=== PATIENT | female | born 1990 | race Hispanic/Latino ===

== ENCOUNTER 2017-04-06 23:15 | Emergency (ER) | payer OTHER ==
[2017-04-06 23:16] VITALS: BMI 23.9
[2017-04-06 23:29] VITALS: BP 136/88; PULSE 72; RESP 18; TEMP 98.3; O2SAT 100
[2017-04-06] MEDS ORDERED: Sodium Chloride 0.9% 1,000 ML IV STA (23:49)
[2017-04-07] MEDS ORDERED: cefTRIAXone 2 GM in Sodium Chloride 0.9% 100 ML IVPB STA (00:02)
--- NOTE | 2017-04-07 00:06 | ED PDOC ---
HPI: Abdomen Time Seen by Provider: 04/06/17 23:22 Chief Complaint (Nursing): Abdominal Pain History Per: Patient History/Exam Limitations: no limitations Onset/Duration Of Symptoms: Hrs Current Symptoms Are (Timing): Still Present Pain Scale Rating Of: 9 Location Of Pain/Discomfort: Other Quality Of Discomfort: Sharp Associated Symptoms: Chills, Nausea, Vomiting (3x episodes). denies: Fever Exacerbating Factors: Movement Alleviating Factors: None Last Bowel Movement: Today Additional Complaint(s): CC: R flank pain, back and abdominal pain HPI: 26 YO Female with PMH of renal stones presents to [facility] ED for R flank pain. Pt states that her pain started this AM, sudden onset, episodic sharp pain in her R flank, and LLQ pain. Pain is rated as a 9/10, with radiation to her groin. Pain is worse with movement, took Percocet this AM and this afternoon without any relief. Pt states that she has had a hard time urinating today, she feels sharp pain with urination and noticed that her urine has been dark and last time she urinated it was pink. Pt states that this feels like her "stone episode" in the past. Endorses chills, nausea and 3x episodes of vomiting (food, no blood). Denies chest pain, dyspnea, palpitations, d/c, fevers. PMH: renal stones SurgHx: skin graft, appendectomy and cholecystectomy SH: denies Smoking, illicit drug use, occasional alcohol FH: denies Allergies: vancomycin hives, rash Meds: Percocet Abnormal Vaginal Bleeding: No Past Medical History Vital Signs: Last Vital Signs Temp 98.3 F 04/06/17 23:26 Pulse 72 04/06/17 23:26 Resp 18 04/06/17 23:26 BP 136/88 04/06/17 23:26 Pulse Ox 100 04/07/17 01:42 - Medical History PMH: Denies: Chronic Kidney Disease - Surgical History Surgical History: Appendectomy, Cholecystectomy - Family History Family History: States: No Known Family Hx - Social History Current smoker - smoking cessation education provided: No Alcohol: Social Drugs: Denies - Home Medications Home Medications: Ambulatory Orders Medication Instructions Recorded Cephalexin [cephalexin] 500 mg PO BID #10 cap 11/21/16 Ondansetron ODT [Zofran ODT] 4 mg PO Q4H PRN #15 odt 11/21/16 traMADol [Ultram] 50 mg PO TID PRN #10 tab 11/21/16 levoFLOXacin [Levaquin] 750 mg PO DAILY #9 tab 04/07/17 traMADol [Ultram] 50 mg PO Q6 PRN #12 tab 04/07/17 - Allergies Allergies/Adverse Reactions: Allergies Allergy/AdvReac Type Severity Reaction Status Date / Time vancomycin Allergy ANAPHYLAXIS Verified 11/21/16 18:20 Review of Systems Constitutional: Positive for: Chills. Negative for: Fever, Sweats Cardiovascular: Negative for: Chest Pain, Palpitations Respiratory: Negative for: Cough, Shortness of Breath Gastrointestinal: Positive for: Nausea, Vomiting, Abdominal Pain (R flank and LLQ pain ). Negative for: Diarrhea, Constipation Genitourinary Female: Positive for: Dysuria, Incontinence, Hematuria. Negative for: Frequency Musculoskeletal: Positive for: Back Pain (b/l back pain and R flank pain) Skin: Negative for: Rash Neurological: Negative for: Weakness, Numbness Physical Exam - Physical Exam Appears: Positive for: In Acute Distress Head Exam: Positive for: ATRAUMATIC, NORMAL INSPECTION Skin: Positive for: Warm, Dry Eye Exam: Positive for: Normal appearance Cardiovascular/Chest: Positive for: Regular Rate, Rhythm. Negative for: Murmur Respiratory: Positive for: Normal Breath Sounds. Negative for: Crackles, Wheezing Gastrointestinal/Abdominal: Positive for: Bowel Sounds, Soft, Tenderness ( diffuse tenderness to palpation of RUQ, R flank, suprapubic tenderness) Back: Positive for: L CVA Tenderness. Negative for: Vertebral Tenderness Extremity: Positive for: Normal ROM. Negative for: Tenderness, Pedal Edema Neurologic/Psych: Positive for: Alert, Oriented - Laboratory Results Result Diagrams: 04/07/17 00:25 04/07/17 00:25 - ECG O2 Sat by Pulse Oximetry: 100 - Progress ED Course And Treament: 26 YO female with PMH of renal stones presents to [facility] ED for R flank and abdominal. --cbc --cmp --CT abdomen --lipase --Urine dip --UA --Urine preg --blood culture --urine culture --IV fluids --toradol IV --Zofran IV --Rocephin IVPB Urine dip sig for large blood, nitrates pos and trace leukes cbc, cmp, lipase wnl Urine preg neg Will start IV Rocephin. UA is sig for Nitrate High, moderate leukes, RBC 1172 H, WBC 254 H, and moderate H bacteria. EXAM: CT Abdomen and Pelvis Without Intravenous Contrast ABDOMEN: Liver: Unremarkable. Gallbladder and bile ducts: Cholecystectomy. Pancreas: Unremarkable. No ductal dilation. Spleen: Unremarkable. No splenomegaly. Adrenals: Unremarkable. No mass. Kidneys and ureters: Nonobstructive tiny right renal stones. Faint densities in the medullary regions of both kidneys are somewhat nonspecific, perhaps reflecting dense solute, Sukumar's plaque, tiny calcifications, or other debris. Stomach and bowel: Large amount of stool in the colon. Nonspecific colonic wall thickening. Correlation with patient's clinical history of constipation versus stool related colitis is recommended. There is stool like appearance to the distal small bowel. This may represent slow transit. Appendix: Appendectomy. PELVIS: Bladder: There is nonspecific bladder wall thickening. This may be related to incomplete distention. Reproductive: Anteriorly displaced uterus. High riding ovaries. ABDOMEN and PELVIS: Intraperitoneal space: Unremarkable. No free air. No significant fluid collection. Bones/joints: No acute fracture. No dislocation. Soft tissues: Bilateral nipple body and labial piercing ring. Vasculature: Pelvic phleboliths. No abdominal aortic aneurysm. Lymph nodes: Unremarkable. No enlarged lymph nodes. IMPRESSION: No acute abnormality on this noncontrast CT examination of the abdomen and pelvis Pain and tenderness is likely 2/2 to pyelonephritis Pt is seen and revaluated Feels better, after pain meds, IV fluids, abx Will d.c home with levaquin and ultram Follow up with PMD Disposition - Clinical Impression Clinical Impression: Pyelonephritis - Patient ED Disposition Is Patient to be Admitted: No - Disposition Disposition Time: 01:40 Condition: STABLE Additional Instructions: Please come back to ED if pain persists With persistent fever over 100.4 with Tylenol Prescriptions: levoFLOXacin [Levaquin] 750 mg PO DAILY #9 tab traMADol [Ultram] 50 mg PO Q6 PRN #12 tab PRN Reason: flank pain Instructions: Acute Pyelonephritis (ED) Forms: [employer] ([place] Islander)
[2017-04-07] MEDS ORDERED: cefTRIAXone (Rocephin) 1 gm Inj ONE (00:26)
[2017-04-07 00:28] LABS: BASO % 0.4 % (0.0-2.0); EOS # 0.1 K/uL (0.0-0.7); EOS % 1.1 % (0.0-4.0); HEMOGLOBIN 13.1 g/dL (12.0-16.0); LYMPH # 3.1 K/uL (1.0-4.3); LYMPH % 36.5 % (20.0-40.0); MEAN CELL VOLUME 87.2 fl (81.0-99.0); MEAN CORPUSCULAR HEMOGLOBIN 29.3 pg (27.0-31.0); MEAN CORPUSCULAR HGB CONC 33.6 g/dL (33.0-37.0); MEAN PLATELET VOLUME 8.3 fl (7.2-11.7); MONO # 0.6 K/uL (0.0-0.8); MONO % 7.3 % (0.0-10.0); NEUT # 4.6 K/uL (1.8-7.0); NEUT % 54.7 % (50.0-75.0); NRBC % 0.1 % (0.0-0.0); RBC 4.47 Mil/uL (3.80-5.20); RED CELL DISTRIBUTION WIDTH 12.6 % (11.5-14.5); WHITE BLOOD COUNT 8.4 K/uL (4.8-10.8)
[2017-04-07 00:43] LABS: ALB/GLOB RATIO 1.3 (1.0-2.1); ALBUMIN 4.1 g/dL (3.5-5.0); ALT/SGPT 22 U/L (9-52); AST/SGOT 29 U/L (14-36); BLOOD UREA NITROGEN 16 mg/dl (7-17); CALCIUM 9.1 mg/dL (8.4-10.2); GFR AFRICAN-AMERICAN > 60; GFR NON-AFRICAN AMERICAN > 60; LIPASE 49 U/L (23-300)
[2017-04-07 00:54] LABS: SQUAMOUS EPITHIAL 1 /hpf (0-5); URINE BACTERIA MOD (<OCC); URINE BILIRUBIN NEGATIVE (NEGATIVE); URINE BLOOD LARGE (NEGATIVE); URINE CLARITY CLOUDY (Clear); URINE COLOR YELLOW (YELLOW); URINE GLUCOSE (UA) NEG (Normal); URINE LEUKOCYTE ESTERASE MOD Leu/uL (Negative); URINE NITRATE POSITIVE (NEGATIVE); URINE PROTEIN 30 mg/dL (NEGATIVE); URINE UROBILINOGEN 0.2-1.0 mg/dL (0.2-1.0)
--- NOTE | 2017-04-07 01:17 | CT ---
EXAM: CT Abdomen and Pelvis Without Intravenous Contrast CLINICAL HISTORY: 26 years old, female; Pain; Abdominal pain; Flank; Right; Prior surgery; Surgery date: 6+ months; Surgery type: Appendectomy. Gall bladder; Additional info: Renal colic TECHNIQUE: Axial computed tomography images of the abdomen and pelvis without intravenous contrast. All CT scans at this facility use one or more dose reduction techniques, viz.: automated exposure control; ma/kV adjustment per patient size (including targeted exams where dose is matched to indication; i.e. head); or iterative reconstruction technique. 571 images are submitted.Limitations: Absence of IV contrast decreases sensitivity for detecting solid organ and vascular abnormality and injury. Coronal and sagittal reformatted images were created and reviewed. COMPARISON: No relevant prior studies available. FINDINGS: Lower thorax: No acute findings. ABDOMEN: Liver: Unremarkable. Gallbladder and bile ducts: Cholecystectomy. Pancreas: Unremarkable. No ductal dilation. Spleen: Unremarkable. No splenomegaly. Adrenals: Unremarkable. No mass. Kidneys and ureters: Nonobstructive tiny right renal stones. Faint densities in the medullary regions of both kidneys are somewhat nonspecific, perhaps reflecting dense solute, Sukumar's plaque, tiny calcifications, or other debris. Stomach and bowel: Large amount of stool in the colon. Nonspecific colonic wall thickening. Correlation with patient's clinical history of constipation versus stool related colitis is recommended. There is stool like appearance to the distal small bowel. This may represent slow transit. Appendix: Appendectomy. PELVIS: Bladder: There is nonspecific bladder wall thickening. This may be related to incomplete distention. Reproductive: Anteriorly displaced uterus. High riding ovaries. ABDOMEN and PELVIS: Intraperitoneal space: Unremarkable. No free air. No significant fluid collection. Bones/joints: No acute fracture. No dislocation. Soft tissues: Bilateral nipple body and labial piercing ring. Vasculature: Pelvic phleboliths. No abdominal aortic aneurysm. Lymph nodes: Unremarkable. No enlarged lymph nodes. IMPRESSION: No acute abnormality on this noncontrast CT examination of the abdomen and pelvis .
== END 2017-04-07 01:55 | disposition home or self-care (01) ==
LOC: H.ER 23:15
DX: N12 Tubulo-interstitial nephritis, not specified as acute or chronic (principal); Z87.442 Personal history of urinary calculi; Z90.49 Acquired absence of other specified parts of digestive tract
CPT/HCPCS: 74176; 80053; 81003; 81025; 83690; 85025; 87040; 87086; 87181; 96361; 96365; 96375; 99282; J0696; J1170; J1885; J2405; J7040

== ENCOUNTER 2017-05-25 12:20 | Emergency (ER) | payer OTHER ==
[2017-05-25 12:21] VITALS: BMI 23.9
[2017-05-25 12:36] VITALS: TEMP 98.5; O2SAT 99
[2017-05-25] MEDS ORDERED: Sodium Chloride 0.9% 1,000 ML IV SCH (14:00)
[2017-05-25 14:09] LABS: SQUAMOUS EPITHIAL 1 /hpf (0-5); URINE BACTERIA RARE (<OCC); URINE BILIRUBIN NEGATIVE (NEGATIVE); URINE BLOOD LARGE (NEGATIVE); URINE CLARITY CLOUDY (Clear); URINE COLOR YELLOW (YELLOW); URINE GLUCOSE (UA) NEG (Normal); URINE LEUKOCYTE ESTERASE LARGE Leu/uL (Negative); URINE PROTEIN 30 mg/dL (NEGATIVE); URINE UROBILINOGEN 0.2-1.0 mg/dL (0.2-1.0)
[2017-05-25 14:32] LABS: BASO % 0.3 % (0.0-2.0); EOS # 0.1 K/uL (0.0-0.7); HEMOGLOBIN 13.3 g/dL (12.0-16.0); LYMPH # 2.1 K/uL (1.0-4.3); LYMPH % 28.6 % (20.0-40.0); MEAN CELL VOLUME 87.8 fl (81.0-99.0); MEAN CORPUSCULAR HGB CONC 34.2 g/dL (33.0-37.0); MEAN PLATELET VOLUME 8.4 fl (7.2-11.7); MONO # 0.5 K/uL (0.0-0.8); MONO % 6.9 % (0.0-10.0); NEUT # 4.6 K/uL (1.8-7.0); NEUT % 63.2 % (50.0-75.0); NRBC % 0.1 % (0.0-0.0); RBC 4.42 Mil/uL (3.80-5.20); RED CELL DISTRIBUTION WIDTH 12.9 % (11.5-14.5); WHITE BLOOD COUNT 7.4 K/uL (4.8-10.8)
[2017-05-25 14:36] LABS: ALB/GLOB RATIO 1.4 (1.0-2.1); ALBUMIN 4.2 g/dL (3.5-5.0); ALT/SGPT 30 U/L (9-52); AST/SGOT 25 U/L (14-36); BLOOD UREA NITROGEN 12 mg/dl (7-17); CALCIUM 9.1 mg/dL (8.4-10.2); GFR AFRICAN-AMERICAN > 60; GFR NON-AFRICAN AMERICAN > 60; LIPASE 53 U/L (23-300)
--- NOTE | 2017-05-25 14:38 | ED PDOC ---
HPI: Abdomen Time Seen by Provider: 05/25/17 12:52 Chief Complaint (Nursing): Abdominal Pain Chief Complaint (Provider): Right Flank Pain History Per: Patient History/Exam Limitations: no limitations Onset/Duration Of Symptoms: Sudden Onset Outside of [place] travel?: No Current Symptoms Are (Timing): Constant Severity: None Quality Of Discomfort: "Pain" Associated Symptoms: Nausea, Vomiting, Urinary Symptoms (hematuria; dysuria). denies: Diarrhea Exacerbating Factors: None Alleviating Factors: None Additional Complaint(s): 26 year old female with past medical history of kidney stones presents to the emergency department complaining of a sudden onset of right flank pain. The patient reports that her pain is constant and is associated with hematuria, dysuria, nausea and vomiting. Patient also noted a tactile fever and chills last night. denies diarrhea, vaginal bleeding and vaginal discharge. Abnormal Vaginal Bleeding: No Past Medical History Reviewed: Historical Data, Nursing Documentation, Vital Signs Vital Signs: Last Vital Signs Temp 98.5 F 05/25/17 12:33 Pulse 83 05/25/17 12:33 Resp 20 05/25/17 12:33 BP 135/85 05/25/17 12:33 Pulse Ox 99 05/25/17 17:05 - Medical History PMH: Kidney Stones Denies: Chronic Kidney Disease - Surgical History Surgical History: Appendectomy, Cholecystectomy - Family History Family History: States: Unknown Family Hx - Social History Current smoker - smoking cessation education provided: No Ex-Smoker (has not smoked in the last 12 months): No Alcohol: Other (yes) Drugs: Denies - Home Medications Home Medications: Ambulatory Orders Medication Instructions Recorded Cephalexin [cephalexin] 500 mg PO BID #10 cap 11/21/16 Ondansetron ODT [Zofran ODT] 4 mg PO Q4H PRN #15 odt 11/21/16 traMADol [Ultram] 50 mg PO TID PRN #10 tab 11/21/16 levoFLOXacin [Levaquin] 750 mg PO DAILY #9 tab 04/07/17 traMADol [Ultram] 50 mg PO Q6 PRN #12 tab 04/07/17 Nitrofurantoin Macrocrystals 100 mg PO BID #20 cap 05/25/17 [Macrobid] Ondansetron ODT [Zofran ODT] 4 mg PO DAILY PRN #20 odt 05/25/17 traMADol [Ultram] 50 mg PO TID PRN #15 tab 05/25/17 - Allergies Allergies/Adverse Reactions: Allergies Allergy/AdvReac Type Severity Reaction Status Date / Time vancomycin Allergy ANAPHYLAXIS Verified 05/25/17 12:33 Review of Systems ROS Statement: Except As Marked, All Systems Reviewed And Found Negative Constitutional: Positive for: Fever (tactile), Chills Gastrointestinal: Positive for: Nausea, Vomiting. Negative for: Diarrhea Genitourinary Female: Positive for: Dysuria, Hematuria. Negative for: Vaginal Discharge, Vaginal Bleeding Musculoskeletal: Positive for: Other (right flank pain) Physical Exam - Physical Exam Appears: Positive for: Non-toxic (AAO x3), In Acute Distress (mild painful distress) Head Exam: Positive for: ATRAUMATIC, NORMAL INSPECTION, NORMOCEPHALIC Skin: Positive for: Normal Color, Warm, Dry. Negative for: Cyanosis Eye Exam: Positive for: Normal appearance, EOMI, PERRL. Negative for: Conjunctival injection, Scleral icterus ENT: Positive for: Normal ENT Inspection (mucous membrane smoist). Negative for : Tonsillar Exudate, Tonsillar Swelling Neck: Positive for: Normal ((-) tenderness, (-) stiffness, (-) lymphadenopathy) , Painless ROM, Supple Cardiovascular/Chest: Positive for: Regular Rate, Rhythm, Chest Non Tender. Negative for: Gallop, Murmur, Tachycardia, Irregularly Irregular Respiratory: Positive for: Normal Breath Sounds (breeath osund equal bilaterally ). Negative for: Rales, Rhonchi, Wheezing, Respiratory Distress Gastrointestinal/Abdominal: Positive for: Normal Exam, Bowel Sounds, Soft, Tenderness (Right upper quadrant, Right Flank tenderness), Other ((-) palpable masses). Negative for: Distended, Guarding, Rebound Back: Positive for: R CVA Tenderness. Negative for: L CVA Tenderness, Vertebral Tenderness Extremity: Positive for: Normal ROM, Other ((+) distal pulses). Negative for: Tenderness, Pedal Edema, Deformity, Swelling Neurologic/Psych: Positive for: Alert ( Mental status as above), Oriented, Other ((-) focal findings) - Laboratory Results Result Diagrams: 05/25/17 14:10 05/25/17 14:10 - ECG O2 Sat by Pulse Oximetry: 99 (RA) Pulse Ox Interpretation: Normal Medical Decision Making Medical Decision Making: Previous charts reviewed on 04/06/17 patient presented to the ED complaining of right flank pain. Patient had a normal CT and was diagnosed with pylonephritis. Patient was also seen on 11/21/16 for similar symptoms and as per radiologist was found to have tiny nonobstructing right renal stones, no ureteral stones or hydronephrosis and diagnosed with cystitis. 1252 Initial Impression Flank Pain possible pylonephritis vs biliary colic Initial Plan: * Toradol 30mg IVP * Zofran 4mg PO * CMP * Lipasee * CBC * Famotidine 40mg IVP * Urine Culture * Urinalysis * US abdomen complete Uhcg (-) UA (+) UTI. Rest of the labs are wnl. On re-evaluation, patient reports continued pain. Lab results d/w the patient, medicated with morphine 4 mg IV. Rocephin 1 g IV ordered. US still pending. US abdomen: FINDINGS: LIVER: Measures 10.4 cm. Normal echogenicity of the liver parenchyma. No mass. No intrahepatic bile duct dilatation. GALLBLADDER: Gallbladder has been previously removed. COMMON BILE DUCT: Measures 2 mm. No stones. No dilatation. PANCREAS: Pancreas was limited in its evaluation. Portions of the head of the pancreas were obscured by bowel gas. RIGHT KIDNEY: Measures 9.3Cm. Normal echogenicity. No calculus, mass, or hydronephrosis. LEFT KIDNEY: Measures 10cm. Normal echogenicity. No calculus, mass, or hydronephrosis. SPLEEN: Normal in size and contour. No mass. AORTA: No aneurysmal dilatation. IVC: Unremarkable. OTHER FINDINGS: None. IMPRESSION: Status post cholecystectomy. Limited evaluation of the pancreas. Otherwise unremarkable abdominal ultrasound. On 2nd re-evaluation, patient reports improvement of symptoms, denies any nausea. On exam, patient remains AAOx3, in no acute distress. Abdomen soft, non- tender, no CVA tenderness. US results d/w the patient in great detail. Diagnosis of pyelonephritis d/w the patient. Based on history, exam and diagnostic results, plan will be for outpatient follow up. Patient instructed to follow-up with pmd the clinic in 1-2 days without fail. Advised to take medication as prescribed. Return to the emergency room at any time for any new or worsening symptoms. Patient states she fully agrees with and understands discharge instructions. States that she agrees with the plan and disposition. Verbalized and repeated discharge instructions and plan. I have given the patient opportunity to ask any additional questions. Documented by Joleen Gross acting as a scribe for Karina Colon PA-C. All medical record entries made by the Scribe were at my direction and personally dictated by me. I have reviewed the chart and agree that the record accurately reflects my personal performance of the history, physical exam, medical decision making, and the department course for this patient. I have also personally directed, reviewed, and agree with the discharge instructions and disposition. Disposition - Clinical Impression Clinical Impression: Pyelonephritis - Patient ED Disposition Is Patient to be Admitted: No Counseled Patient/Family Regarding: Studies Performed, Diagnosis, Need For Followup, Rx Given - Disposition Disposition: Routine/Home Disposition Time: 16:30 Condition: IMPROVED Additional Instructions: Thank you for letting us take care of you today. You were treated for pyelonephritis. The emergency medical care you received today was directed at your acute symptoms. If you were prescribed any medication, please fill it and take as directed. It may take several days for your symptoms to resolve. Return to the Emergency Department if your symptoms worsen, do not improve, or if you have any other problems. Please contact your doctor in 2 days for re-evaluation and follow up. Bring any paperwork you were given at discharge with you along with any medications you are taking to your follow up visit. Our treatment cannot replace ongoing medical care by a primary care provider (PCP) outside of the emergency department. Thank you for allowing the [facility] team to be part of your care today. Prescriptions: Nitrofurantoin Macrocrystals [Macrobid] 100 mg PO BID #20 cap Ondansetron ODT [Zofran ODT] 4 mg PO DAILY PRN #20 odt PRN Reason: Nausea/Vomiting traMADol [Ultram] 50 mg PO TID PRN #15 tab PRN Reason: Pain, Moderate (4-7) Instructions: Kidney Infection (DC) Forms: [facility] (British), [facility] ED School/Work Excuse
--- NOTE | 2017-05-25 15:01 | US ---
HISTORY: RUQ pain, R flank pain COMPARISON: CT scan 04/07/2017 TECHNIQUE: Sonographic evaluation of the abdomen. FINDINGS: LIVER: Measures 10.4 cm. Normal echogenicity of the liver parenchyma. No mass. No intrahepatic bile duct dilatation. GALLBLADDER: Gallbladder has been previously removed. COMMON BILE DUCT: Measures 2 mm. No stones. No dilatation. PANCREAS: Pancreas was limited in its evaluation. Portions of the head of the pancreas were obscured by bowel gas. RIGHT KIDNEY: Measures 9.3Cm. Normal echogenicity. No calculus, mass, or hydronephrosis. LEFT KIDNEY: Measures 10cm. Normal echogenicity. No calculus, mass, or hydronephrosis. SPLEEN: Normal in size and contour. No mass. AORTA: No aneurysmal dilatation. IVC: Unremarkable. OTHER FINDINGS: None. IMPRESSION: Status post cholecystectomy. Limited evaluation of the pancreas. Otherwise unremarkable abdominal ultrasound.
[2017-05-25] MEDS ORDERED: cefTRIAXone (Rocephin) 1 gm Inj ONE (16:05)
[2017-05-25] MEDS ORDERED: Morphine 4 MG/ML VIAL ONE (16:06)
[2017-05-25] MEDS ORDERED: Morphine 4 MG/ML VIAL IVP STA (16:09)
[2017-05-25 19:43] VITALS: BP 132/81; PULSE 85; RESP 18
== END 2017-05-25 17:57 | disposition home or self-care (01) ==
LOC: H.ER 12:20
DX: N12 Tubulo-interstitial nephritis, not specified as acute or chronic (principal); Z90.49 Acquired absence of other specified parts of digestive tract; Z87.442 Personal history of urinary calculi
CPT/HCPCS: 76700; 80053; 81003; 81025; 83690; 85025; 87086; 87181; 96361; 96365; 96375; 99284; J0696; J1885; J2270; J7040